=== PATIENT | female | born 1970 | race Caucasian/White ===

== ENCOUNTER 2020-10-20 11:24 | Outpatient (REF) | payer SELFPAY ==
[2020-10-20 14:24] LABS: Cholesterol 249 mg/dL
== END 2020-10-20 11:25 | disposition home or self-care (01) ==
LOC: HO.LNC 11:24
PROVIDERS: Visit Provider Pathology Anatomic Pathology & Clinical Pathology
DX: Z13.89 Encounter for screening for other disorder (principal)
CPT/HCPCS: 36415; 82465

== ENCOUNTER 2021-01-31 07:46 | Outpatient (REF) | payer OTHER, SELFPAY ==
[2021-01-31 08:37] LABS: Alanine Aminotransferase 14 U/L (0-31); Cholesterol 247 mg/dL; Glucose Fasting 93 mg/dL (60-99); HDL Cholesterol 104 mg/dL; LDL Cholesterol Calculated 133 mg/dl; Triglycerides 52 mg/dL
== END 2021-01-31 07:47 | disposition home or self-care (01) ==
LOC: HO.LAB 07:46
PROVIDERS: PCP Family Medicine; Visit Provider Family Medicine
DX: E78.00 Pure hypercholesterolemia, unspecified (principal); Z79.899 Other long term (current) drug therapy; Z83.3 Family history of diabetes mellitus
CPT/HCPCS: 36415; 80061; 82550; 82947; 84460

== ENCOUNTER 2021-03-29 10:28 | Emergency (ER) | payer OTHER, SELFPAY ==
--- NOTE | ~2021-03-29 | CT_ITS ---
EXAMINATION: CT HEAD WITHOUT CONTRAST CLINICAL INFORMATION: Left-sided facial numbness. COMPARISON: None TECHNIQUE: Contiguous axial imaging was performed from the skull base to vertex without intravenous administration of contrast. This CT examination was performed using dose optimization techniques as appropriate, variously including the following: *Automated exposure control *Adjustment of mA and/or kV according to patient size (this includes techniques or standardized protocols for targeted exams where dose is matched to indication/reason for exam; i.e. extremities or head) *Use of iterative reconstruction technique DLP: 746 mGy-cm FINDINGS: There is no evidence of acute intracranial hemorrhage or territorial infarction. No abnormal mass effect or midline shift is seen. Celeste to white matter differentiation is well preserved. No extra-axial fluid collections are identified. The ventricles are normal in size. There is no abnormal attenuation within the brain parenchyma. The osseous structures and soft tissues are normal. The mastoid air cells and visualized portions of the paranasal sinuses are well aerated. CT/CT head/brain wo con IMPRESSION: No acute intracranial process seen.
--- NOTE | ~2021-03-29 | US_ITS ---
EXAMINATION: US VENOUS ULTRASOUND WITH DOPPLER LOWER EXTREMITY, LEFT CLINICAL INFORMATION: Leg swelling. COMPARISON: None TECHNIQUE: Ultrasound of the deep veins is performed from the hip to the calf with compression sonography and color and pulse Doppler assessment. Spectral analysis with color-flow imaging is performed. FINDINGS: There is normal venous compression and respiratory variation and augmented flow. The visualized common femoral vein, superficial femoral vein, profunda femoral vein, popliteal vein, and the trifurcation region shows no evidence of deep venous thrombosis. There is no significant popliteal fossa cyst. If the patient's symptoms persist, followup ultrasound in 5 days 7 days might be of value to exclude proximal propagation from a non-visualized calf vein. US/US venous duplex LE LT IMPRESSION: No DVT demonstrated in the left lower extremity.
[2021-03-29 10:37] VITALS: BP 120/60; PULSE 74; RESP 18; TEMP 36.2; O2SAT 99; BMI 32.3
--- NOTE | 2021-03-29 11:01 | ECG_ITS ---
Test Reason : LEFT ARM NUMBNESS Blood Pressure : / mmHG Vent. Rate : 069 BPM Atrial Rate : 069 BPM P-R Int : 142 ms QRS Dur : 104 ms QT Int : 404 ms P-R-T Axes : 049 060 062 degrees QTc Int : 432 ms Normal sinus rhythm with sinus arrhythmia Normal ECG No previous ECGs available Referred By: Monik Jovel Electronically Signed By:Reggie Rebollar
--- NOTE | 2021-03-29 11:07 | ED.GENADULT ---
HPI - General Adult General Chief complaint: Extremity Problem Stated complaint: Possible blood clot Time Seen by Provider: 03/29/21 10:48 Source: patient Mode of arrival: ambulatory Limitations: no limitations History of Present Illness HPI narrative: 50yo female previously healthy here with complaints of left knee pain/swelling > months. Seen by [facility] and had x-ray which showed no acute finding. Diagnosed with chondromalacia and sent to 6 weeks of physical therapy. Increasing pain this week with no new injury or trauma. Spoke to orthopedics and is pending an MRI of knee. Now having pain and swelling extending to the left calf with mild warmth. No fevers, chills or redness. No recent travel or sick contact. No OCP or estrogen use. No h/o blood clots or familial history. Has been sedentary last few months d/t pain in the left knee. Also c/o left sided facial numbness > 4 months with intermittent numbness in left arm as well. No weakness, speech changes, ROSADO, dizziness, vision changes, neck pain, chest pain, weakness. Has upcoming appt with PCP [place] April[place] l[place]. Cannot recall any tick bites but is outside frequently. Related Data Allergies Allergy/AdvReac Type Severity Reaction Status Date / Time levofloxacin [From LEVAQUIN] AdvReac Intermediate NAUSEA Verified 03/29/21 10:37 Review of Systems Review of Systems: Yes all other systems are reviewed and are negative Constitutional: Constitutional: Reports no additional constitutional complaints, Denies body ache(s), Denies chills, Denies fever(s), Denies headache(s) and Denies weakness Eyes: Eyes: Reports no additional eye complaints and Denies change in vision ENT: Reports system reviewed and no additional complaints, except as documented, Denies dizziness, Denies headache(s), Denies nasal congestion, Denies nasal discharge and Denies neck pain Cardiovascular: Cardiovascular: Reports no additional cardiovascular complaints, Denies chest pain, Reports leg edema and Denies dyspnea Respiratory: Respiratory: Reports no additional respiratory complaints, Denies cough and Denies dyspnea Gastrointestinal: Gastrointestinal: Reports no additional gastrointestinal complaints, Denies abdominal pain, Denies diarrhea, Denies nausea and Denies vomiting Genitourinary: Genitourinary: Reports no additional female genitourinary complaints and Denies urinary incontinence Musculoskeletal: Musculoskeletal: Reports no additional musculoskeletal complaints, Denies back pain, Reports arthralgias, Denies joint swelling, Denies neck pain, Reports numbness and Denies tingling Integumentary/Breasts: Skin/Breast: Reports system reviewed and no additional complaints, except as docu, Reports swelling and Denies rash Neurologic: Reports system reviewed and no additional complaints, except as documented, Denies Abnormal speech present, Denies dizziness, Denies headache(s), Reports numbness, Denies tingling and Denies weakness [facility] Past Medical History Attestation statement: The following information was validated with the patient. Source: old records reviewed and nursing notes reviewed Social History Social History Advance Directives: Yes Advance Directives Information Provided: Yes Advance Directives on File: No Patient : No Physical Exam Vital Signs: Vital Signs: Last Vital Signs Temp 97.1 F 03/29/21 10:37 Pulse 74 03/29/21 10:37 Resp 18 03/29/21 10:37 BP 120/60 03/29/21 10:37 Pulse Ox 99 03/29/21 10:37 Body Mass Index 32.3 Const: General: cooperative, healthy appearing, comfortable and no acute distress Orientation/consciousness: patient oriented x3 Limitations: no limitations HENMT: Head: Yes normal to inspection Ears: hearing grossly normal bilaterally and TM's normal bilaterally General nose exam: Normal external nose present Face and sinus: Yes normal facial exam Mouth: Normal oral and palatal mucosa present, lip normal and tongue normal Throat: Yes posterior oropharynx normal, Yes tonsils normal and Yes uvula midline Eyes: General: appearance normal, both eyes and all related structures Visual Campbell: normal visual campbell by confrontation Alignment and Position: alignment normal Periorbital: periorbital findings normal Eyelids: Yes eyelids normal Conjunctivae: conjunctivae normal Sclerae: sclerae normal Corneas: corneas normal Pupils: Equal, round and reactive pupils present EOM: EOMs intact bilaterally Direct Ophthalmoscopy: normal light reflex and no photophobia Neck: Neck: Yes normal visual inspection, Yes full ROM, Yes no lymphadenopathy and Yes no meningeal signs Chest: Chest palpation & inspection: normal inspection of the chest Resp: Effort & Inspection: normal respiratory effort Auscultation: clear to auscultation bilaterally Cardio: Rate: regular rate Rhythm: regular rhythm Peripheral pulses: Peripheral pulses 2+ throughout GI: Inspection: Yes normal to inspection Palpation (GI): Soft to palpation and nontender Auscultation: normal bowel sounds Back/Spine/Pelvis: Thoracic/Lumbar Spine: thoracic and lumbar spine normal to inspection Skin: General skin exam: no rashes or lesions noted Neuro: Other: Reports sensation intact to left face and left arm but feels dull General: patient oriented x3, no meningeal signs, no focal motor deficits and normal sensation to monofilament Cranial nerves: Yes Equal, round and reactive pupils present, Yes Bilaterally intact EOM present, Yes Nystagmus not present, Yes Normal facial strength present and Yes Midline tongue present Cognition (Neuro): normal cognition Speech: No Abnormal speech present Gait exam (Neuro): Normal gait present Motor exam (neuro): 5/5 motor strength present throughout Sensory Exam: Normal double simultaneous stimulation for sensation Deep tendon reflexes (DTR's): Right patellar reflex intensity grade: 3+ and Left patellar reflex intensity grade: 3+ Coordination: [id number]-kg-[id number] test normal and ocmk-xt-ldew test normal Extrem: Other: Tendernes to both anterior and posterior left knee. Mild swelling. No warmth or redness. No ligamental laxity. Negative anterior drawer test. Mild swelling and tenderness to the left lower extremity and to the posterior calf. Palpable DP and PT pulses. Sensation is intact distally. General: Yes normal to inspection Course Course Course Narrative: 50-year-old female here with multiple complaints. Patient is complaining of acute on chronic left knee pain now with radiation to the left calf with some swelling for the last week. Has pending outpatient MRI of the knee and is followed by [facility]. On exam she does have some tenderness and swelling to the left knee with some mild posterior calf tenderness and swelling. Will check ultrasound. No new fall or injury so will defer x-ray. Also complaining of left facial numbness and left arm numbness for greater than 4 months. Patient does have dull or sensation reported over the face and arm but otherwise a normal neurological exam. Upcoming appointment with primary care on April to address this. Will check labs, EKG and CT head. 1300- ultrasound negative for DVT. Patient has outpatient MRI which is pending Orthopedics. No need for emergent MRI of the knee at this time. Recommended RICE, NSAIDS. CT, EKG and labs all unremarkable with symptoms greater than 4 months. Lyme panel is pending. can follow-up with primary care doctor outpatient. Has upcoming appointment in April. reviewed worrisome signs and symptoms of when to return to the emergency department. Comfortable discharge home. Medical Decision Making MDM Narrative Medical decision making narrative: Paresthesias, Lyme disease, ICH versus lesion vs CVA-less likely with intermittent symptoms > 4 months with negative imaging, sun cyst, DVT Medical Records Medical records reviewed: Yes I reviewed the patient's medical records. Lab Data Lab results reviewed: Yes I reviewed the patient's lab results. Result diagrams: 03/29/21 11:59 03/29/21 11:58 Labs: Lab Results 03/29/21 03/29/21 03/29/21 Range/Units 11:58 11:58 11:59 WBC 7.5 (4.8-10.8) X10*3/uL RBC 4.39 (4.20-5.50) X10*6/uL Hgb 13.1 (12.0-16.0) g/dl Hct 40.0 (37-47) % MCV 91.1 (80-98) fL MCH 29.8 (27.0-33.0) pg MCHC 32.8 (31.0-35.0) g/dl RDW 13.1 (11.0-16.0) % Plt Count 223 (160-400) X10*3/uL MPV 10.2 (9.4-12.3) fL Immature Gran % (Auto) 0.3 (0.0-0.4) % Neut % (Auto) 65.8 (45-73) % Lymph % (Auto) 25.4 (20-40) % [place] % (Auto) 7.4 (2-11) % Eos % (Auto) 0.7 (0-4) % Baso % (Auto) 0.4 (0-2) % Lymph # (Auto) 1.9 (1.2-4.9) X10*3/uL [place] # (Auto) 0.6 (0.1-1.2) X10*3/uL Eos # (Auto) 0.1 (0.0-0.4) X10*3/uL Baso # (Auto) 0.0 (0.0-0.2) X10*3/uL Abs Immat Gran (auto) 0.02 (0.00-0.03) X10*3/uL Absolute Neuts (auto) 5.0 (2.0-8.3) X10*3/uL Absolute Nucleated RBC 0.000 (0.0-0.012) X10*3/uL Nucleated RBC % (auto) 0.0 (0.0-0.2) /100WBC Sodium 142 (135-145) mmol/L Potassium 4.1 (3.3-5.1) mmol/L Chloride 104 (96-108) mmol/L Carbon Dioxide 28 (22-29) mmol/L Anion Gap 14 (12-20) BUN 13 (9-16) mg/dL Creatinine 0.85 (0.5-1.4) mg/dL Estim Creat Clear Calc 89.8 Estimated GFR > 60 Random Glucose 85 (60-115) mg/dL Calcium 9.8 (8.4-10.2) mg/dL Magnesium 2.0 Cancelled (1.6-2.6) mg/dL Total Bilirubin 1.2 H (0.0-1.0) mg/dL Direct Bilirubin 0.4 (0.0-0.5) mg/dL AST 33 H (5-31) U/L ALT 60 H (0-31) U/L Alkaline Phosphatase 78 (39-117) U/L Troponin I High Sens (<3.5-17.0) ng/L Total Protein 7.2 (6.5-8.0) g/dL Albumin 4.4 (3.5-5.0) g/dL 03/29/21 Range/Units 12:03 WBC (4.8-10.8) X10*3/uL RBC (4.20-5.50) X10*6/uL Hgb (12.0-16.0) g/dl Hct (37-47) % MCV (80-98) fL MCH (27.0-33.0) pg MCHC (31.0-35.0) g/dl RDW (11.0-16.0) % Plt Count (160-400) X10*3/uL MPV (9.4-12.3) fL Immature Gran % (Auto) (0.0-0.4) % Neut % (Auto) (45-73) % Lymph % (Auto) (20-40) % [place] % (Auto) (2-11) % Eos % (Auto) (0-4) % Baso % (Auto) (0-2) % Lymph # (Auto) (1.2-4.9) X10*3/uL [place] # (Auto) (0.1-1.2) X10*3/uL Eos # (Auto) (0.0-0.4) X10*3/uL Baso # (Auto) (0.0-0.2) X10*3/uL Abs Immat Gran (auto) (0.00-0.03) X10*3/uL Absolute Neuts (auto) (2.0-8.3) X10*3/uL Absolute Nucleated RBC (0.0-0.012) X10*3/uL Nucleated RBC % (auto) (0.0-0.2) /100WBC Sodium (135-145) mmol/L Potassium (3.3-5.1) mmol/L Chloride (96-108) mmol/L Carbon Dioxide (22-29) mmol/L Anion Gap (12-20) BUN (9-16) mg/dL Creatinine (0.5-1.4) mg/dL Estim Creat Clear Calc Estimated GFR Random Glucose (60-115) mg/dL Calcium (8.4-10.2) mg/dL Magnesium (1.6-2.6) mg/dL Total Bilirubin (0.0-1.0) mg/dL Direct Bilirubin (0.0-0.5) mg/dL AST (5-31) U/L ALT (0-31) U/L Alkaline Phosphatase (39-117) U/L Troponin I High Sens < 3.5 (<3.5-17.0) ng/L Total Protein (6.5-8.0) g/dL Albumin (3.5-5.0) g/dL Imaging Data Venous US: Attestation: I personally reviewed and interpreted this imaging study as follows: Radiologist's impression: FINDINGS: There is normal venous compression and respiratory variation and augmented flow. The visualized common femoral vein, superficial femoral vein, profunda femoral vein, popliteal vein, and the trifurcation region shows no evidence of deep venous thrombosis. There is no significant popliteal fossa cyst. If the patient's symptoms persist, followup ultrasound in 5 days 7 days might be of value to exclude proximal propagation from a non-visualized calf vein. US/US venous duplex LE LT IMPRESSION: No DVT demonstrated in the left lower extremity. CT scan - head: Attestation: I personally reviewed and interpreted this imaging study as follows: Radiologist's impression: FINDINGS: There is no evidence of acute intracranial hemorrhage or territorial infarction. No abnormal mass effect or midline shift is seen. Celeste to white matter differentiation is well preserved. No extra-axial fluid collections are identified. The ventricles are normal in size. There is no abnormal attenuation within the brain parenchyma. The osseous structures and soft tissues are normal. The mastoid air cells and visualized portions of the paranasal sinuses are well aerated. CT/CT head/brain wo con IMPRESSION: No acute intracranial process seen. ECG Data Attestation: I personally reviewed and interpreted this ECG as follows: Interpretation: 1137 NSR with SA, normal pr, normal qrs, normal qtc Discharge Plan Discharge Clinical Impression: Acute pain of left knee, Facial paresthesia Patient Disposition: Home, Self-Care Instructions: Paresthesia (ED), Knee Pain (ED) Additional Instructions: Follow-up with [facility] for MRI as discussed Ice to the area, elevation and steven bandage for comfort Your CT scan, lab work all looked normal. You should follow-up with your doctor for your symptoms of numbness Referrals: Merritt Johnson MD [Primary Care Provider] - 2 days Interventions: ED Discharge Assessment Last Done: 03/29/21 13:26 Discharge Date/Time: 03/29/21 13:31
[2021-03-29 12:09] LABS: Basophils Percent Auto 0.4 % (0-2); Eosinophils Absolute Auto 0.1 X10*3/uL (0.0-0.4); Eosinophils Percent Auto 0.7 % (0-4); Hemoglobin 13.1 g/dl (12.0-16.0); Imm Gran Abs Auto 0.02 X10*3/uL (0.00-0.03); Imm Gran Pct Auto 0.3 % (0.0-0.4); Lymphocytes Absolute Auto 1.9 X10*3/uL (1.2-4.9); Lymphocytes Percent Auto 25.4 % (20-40); MANUAL DIFF FLAG NO; Mean Corpuscular HGB Conc 32.8 g/dl (31.0-35.0); Mean Corpuscular Hemoglobin 29.8 pg (27.0-33.0); Mean Corpuscular Volume 91.1 fL (80-98); Mean Platelet Volume 10.2 fL (9.4-12.3); Monocytes Absolute Auto 0.6 X10*3/uL (0.1-1.2); Monocytes Percent Auto 7.4 % (2-11); Neutrophils Percent Auto 65.8 % (45-73); Platelet Count 223 X10*3/uL (160-400); Red Blood Count 4.39 X10*6/uL (4.20-5.50); Red Cell Distribution Width 13.1 % (11.0-16.0); White Blood Count 7.5 X10*3/uL (4.8-10.8)
[2021-03-29 12:41] LABS: Troponin-I High Sensitivity < 3.5 ng/L (<3.5-17.0)
[2021-03-29 12:42] LABS: Alanine Aminotransferase 60 U/L (0-31); Albumin Level 4.4 g/dL (3.5-5.0); Alkaline Phosphatase 78 U/L (39-117); Anion Gap 14 (12-20); Aspartate Amino Transferase 33 U/L (5-31); Bilirubin Direct 0.4 mg/dL (0.0-0.5); Bilirubin Total 1.2 mg/dL (0.0-1.0); Blood Urea Nitrogen 13 mg/dL (9-16); Calcium 9.8 mg/dL (8.4-10.2); Carbon Dioxide 28 mmol/L (22-29); Chloride 104 mmol/L (96-108); Creatinine Clr Calc Pharmacy 89.8; Estimated Glomerular Filt Rate > 60; Glucose Random 85 mg/dL (60-115); Potassium 4.1 mmol/L (3.3-5.1); Sodium 142 mmol/L (135-145); Total Protein 7.2 g/dL (6.5-8.0)
[2021-03-30 17:06] LABS: Lyme Abs Screen <0.90 index
== END 2021-03-29 13:31 | disposition home or self-care (01) ==
PROVIDERS: Nurse Practitioner Family; Emergency Provider Emergency Medicine; PCP Family Medicine
DX: M25.562 Pain in left knee (principal); R60.0 Localized edema; R20.2 Paresthesia of skin; Z79.899 Other long term (current) drug therapy
CPT/HCPCS: 36415; 70450; 80048; 80076; 83735; 84484; 85025; 86617; 86618; 93005; 93971; 99284

== ENCOUNTER 2021-04-08 12:33 | Outpatient (REF) | payer OTHER, SELFPAY ==
--- NOTE | ~2021-04-08 | MM_ITS ---
EXAMINATION: MM SCREENING DIGITAL BREAST TOMOSYNTHESIS, BILATERAL CLINICAL INFORMATION: Screening. Asymptomatic. Family history breast cancer, sister. The lifetime risk of breast cancer based on the Tyrer-Cuzick Model is 22%. COMPARISON: Mammography: 03/03/2020, 02/22/2019, 01/16/2018 TECHNIQUE: Digital breast tomosynthesis is performed in both the craniocaudal and mediolateral oblique views along with computer-aided detection (CAD). Synthesized 2D images are generated from the tomosynthesis. FINDINGS: There are scattered areas of fibroglandular density (ACR BI-RADS breast composition Category b). There are no significant masses, abnormal calcifications, or other abnormalities. The axilla and skin contours are unremarkable. MM/MM tomosynthesis screening BI IMPRESSION: No mammographic evidence of malignancy. ASSESSMENT: BI-RADS 1: Negative RECOMMENDATION: 1. Routine annual mammography screening. 2. The lifetime risk of breast cancer based on the Tyrer-Cuzick Model is 22%. Additional annual adjunct screening with breast MRI may be of benefit in women with a risk score of 20% or greater. This patient's information was entered into a reminder system with a target due date for their next mammogram.
== END 2021-04-08 12:34 | disposition home or self-care (01) ==
LOC: HO.MAMMO 12:33
PROVIDERS: Visit Provider Family Medicine
DX: Z12.31 Encounter for screening mammogram for malignant neoplasm of breast (principal)
CPT/HCPCS: 77063; 77067

== ENCOUNTER 2021-07-02 09:16 | Emergency (ER) | payer OTHER, SELFPAY ==
--- NOTE | ~2021-07-02 | XR_ITS ---
EXAMINATION: XR CHEST CLINICAL INFORMATION: Cough, shortness of breath. COMPARISON: None TECHNIQUE: 2 views of the chest were obtained. FINDINGS: The lungs are well-expanded and clear. The heart size and pulmonary vascularity is normal. No gross bony abnormality seen. XR/XR chest 2V IMPRESSION: Unremarkable chest exam.
[2021-07-02 10:26] VITALS: BP 144/62; PULSE 84; RESP 18; TEMP 36.7; O2SAT 98; BMI 32.3
--- NOTE | 2021-07-02 10:42 | ED.GENADULT ---
HPI - General Adult General Chief complaint: Upper Respiratory Symptoms Stated complaint: Cough Time Seen by Provider: 07/02/21 10:41 Source: patient Limitations: no limitations History of Present Illness HPI narrative: Patient presents to the ER with worsening cough and congestion since Tuesday. Patient works as a dental hygienist. Patient is not vaccinated for COVID-19. Patient had a rapid COVID-19 test and PCR test done on Tuesday that was negative she has test results with her. Patient denies tobacco history. Cough is nonproductive at this time. Patient does have a history of seasonal allergies and also history of hypercholesterolemia. At this time patient denies nausea vomiting fever chills. Patient states difficulty sleeping at night secondary to cough symptoms are moderate. Related Data Previous Rx's Medication Instructions Recorded albuterol sulfate 90 mcg/actuation 2 puff INHALATION Q6H PRN #6.7 g 07/02/21 aerosol inhaler (ProAir HFA) hydrocodone-homatropine 5 mg-1.5 5 ml PO Q6H PRN #100 ml 07/02/21 mg/5 mL oral syrup (Hycodan (with homatropine)) prednisone 20 mg tablet 40 mg PO DAILY 5 Days #10 tab 07/02/21 Allergies Allergy/AdvReac Type Severity Reaction Status Date / Time levofloxacin [From LEVAQUIN] AdvReac Intermediate NAUSEA Verified 03/29/21 10:37 Review of Systems Constitutional: Constitutional: Denies body ache(s), Denies chills, Denies fever(s) and Denies headache(s) ENT: Denies headache(s), Reports nasal congestion, Denies nasal discharge, Denies nose pain and Reports sore throat Cardiovascular: Cardiovascular: Denies chest pain and Reports dyspnea Respiratory: Respiratory: Reports cough and Reports dyspnea Gastrointestinal: Gastrointestinal: Denies nausea and Denies vomiting Musculoskeletal: Musculoskeletal: Denies back pain and Denies muscle cramps Neurologic: Denies headache(s) [facility] Past Medical History Attestation statement: The following information was validated with the patient. Medical History No known health problems Social History Social History Advance Directives: No Advance Directives Information Provided: No Patient : No Physical Exam Vital Signs: Vital Signs: Last Vital Signs Temp 98.0 F 07/02/21 10:26 Pulse 84 07/02/21 10:26 Resp 18 07/02/21 10:26 BP 144/62 H 07/02/21 10:26 Pulse Ox 98 07/02/21 10:26 Body Mass Index 32.3 vital signs have been reviewed as normal and appeared to be correct. Blood pressure normal. Heart rate normal. Respiration rate normal. Temperature normal. Oxygen saturation normal. No Dowling signs noted. No raccoon eyes noted Eyes: PERRLA. EOMI. Conjunctiva and sclera normal. Eyelids normal. ENT: Pharynx normal. Uvula midline. Moist mucous membranes. No trismus noted. No drooling noted. Neck: Soft full range of motion, no JVD CVS: Heart regular rate and rhythm no murmurs and rubs Respiratory: Breath sounds coarse bilaterally Abdomen: Soft nontender no rebound or guarding positive bowel sounds Skin: Skin warm and dry. Normal skin color. Normal skin turgor. No rashes/lesions/lacerations noted. Extremities: No lower extremity edema. Extremities exhibit normal range of motion. Extremities nontender. Neuro: Oriented X 3. No motor deficit. No sensory deficit. Reflexes normal. Course Course Course Narrative: Acute bronchitis Pneumonia Viral syndrome URI Sinusitis Chest x-ray pending Chest x-ray negative symptoms consistent with acute bronchitis [place] reviewed Medical Decision Making Imaging Data Chest x-ray: Radiologist's impression: [address] [address] XRay Report Signed Patient: Savita Haynes MR#: [id number] : 1970 Acct:[id number] Age/Sex: 51 / F ADM Date: 07/02/21 Loc: .ED Attending Dr: Ordering Physician: Tom Ng Date of Service: 07/02/21 Procedure(s): XR chest 2V Accession Number(s): [id number] cc: Tom Ng ~ EXAMINATION: XR CHEST CLINICAL INFORMATION: Cough, shortness of breath. COMPARISON: None TECHNIQUE: 2 views of the chest were obtained. FINDINGS: The lungs are well-expanded and clear. The heart size and pulmonary vascularity is normal. No gross bony abnormality seen. XR/XR chest 2V IMPRESSION: Unremarkable chest exam. 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
== END 2021-07-02 11:58 | disposition home or self-care (01) ==
PROVIDERS: Emergency Provider Emergency Medicine Emergency Medical Services; PCP Family Medicine
DX: J40 Bronchitis, not specified as acute or chronic (principal); R05.9 Cough, unspecified; Z20.822 Contact with and (suspected) exposure to COVID-19; Z79.899 Other long term (current) drug therapy
CPT/HCPCS: 71046; 99283

== ENCOUNTER 2022-04-19 11:49 | Outpatient (REF) | payer OTHER, SELFPAY ==
--- NOTE | ~2022-04-19 | MM_ITS ---
EXAMINATION: MM SCREENING DIGITAL BREAST TOMOSYNTHESIS, BILATERAL CLINICAL INFORMATION: Screening. Asymptomatic. Family history breast cancer, sister. The lifetime risk of breast cancer based on the Tyrer-Cuzick Model is 24%. COMPARISON: Mammography: 04/08/2021, 03/03/2020, 02/22/2019 TECHNIQUE: Digital breast tomosynthesis is performed in both the craniocaudal and mediolateral oblique views along with computer-aided detection (CAD). Synthesized 2D images are generated from the tomosynthesis. FINDINGS: There are scattered areas of fibroglandular density (ACR BI-RADS breast composition Category b). There are no significant masses, abnormal calcifications, or other abnormalities. Parenchymal pattern is similar to prior studies. The axilla and skin contours are unremarkable. MM/MM tomosynthesis screening BI IMPRESSION: No mammographic evidence of malignancy. ASSESSMENT: BI-RADS 1: Negative RECOMMENDATION: Routine annual mammography screening. This patient's information was entered into a reminder system with a target due date for their next mammogram.
== END 2022-04-19 11:50 | disposition home or self-care (01) ==
LOC: HO.MAMMO 11:49
PROVIDERS: PCP Internal Medicine; Visit Provider Obstetrics & Gynecology Gynecology
DX: Z12.31 Encounter for screening mammogram for malignant neoplasm of breast (principal)
CPT/HCPCS: 77063; 77067

== ENCOUNTER 2023-03-07 07:22 | Day surgery (SDC) | payer OTHER, SELFPAY ==
--- NOTE | 2023-03-04 11:37 | P.CONAN_ITS ---
Documented by User: Amparo Mahan NP 03/04/23 11:39 HPI - Anesthesia Eval Consult details Narrative: 52yo F for Colonoscopy [facility] Past Medical History Medical History (Updated 03/04/23 @ 11:39 by Amparo Mahan NP) HLD (hyperlipidemia) Surgical History Surgical History (Updated 03/04/23 @ 11:38 by Amparo Mahan NP) H/O colonoscopy Social History Social History Advance Directives: No Advance Directives Information Provided: Yes Meds Allergies Allergy/AdvReac Type Severity Reaction Status Date / Time levofloxacin [From LEVAQUIN] AdvReac Intermediate NAUSEA Verified 03/29/21 10:37 Home Medications Medication Instructions Recorded Confirmed Last Taken Type simvastatin 10 mg tablet 10 mg PO BEDTIME 03/04/23 03/04/23 Unknown History Exam Exam Date and Time: March 04, 2023 113 Assessment and Plan Assessment Anesthesia Assessment: Chart Reviewed Documented by User: Tom Adkins MD 03/07/23 07:39 [facility] Past Medical History Medical History (Updated 03/04/23 @ 11:39 by Amparo Mahan NP) HLD (hyperlipidemia) Family History Family history of problems with anesthesia: No Surgical History Surgical History (Updated 03/04/23 @ 11:38 by Amparo Mahan NP) H/O colonoscopy History of Problems with Anesthesia: No Social History Social History Advance Directives: No Advance Directives Information Provided: Yes Meds Allergies Allergy/AdvReac Type Severity Reaction Status Date / Time levofloxacin [From LEVAQUIN] AdvReac Intermediate NAUSEA Verified 03/29/21 10:37 Home Medications Medication Instructions Recorded Confirmed Last Taken Type simvastatin 10 mg tablet 10 mg PO BEDTIME 03/04/23 03/04/23 Unknown History Exam Airway Mallampati Class: II TM Dist: >3cm Neck ROM: Limited Heart: rrr Lungs: cta Assessment and Plan Assessment Anesthesia Assessment: Anesthesia Plan Discussed Final Anesthetic Review Family History of Problems with Anesthesia: No History of Problems with Anesthesia: No NPO: Yes ASA Class: II Final Preanesthetic Review: No Changes in Pt Med Stat, Meds/Allgs Chart Rev iewed, Consent Obtained/Reviewed and Anes Risks/Benef Reviewed Patient Risk: Intermediate Procedure Risk: Low Anesthetic Plan Anesthetic Plan: MAC: and Agree w/ Assess. and Plan Disposition: Standard PACU
[2023-03-07 07:52] VITALS: BMI 39.4
[2023-03-07 07:59] VITALS: BP 113/94; PULSE 87; RESP 15; TEMP 36.4; O2SAT 98
[2023-03-07] MEDS: Lactated Ringers 1,000 ML 100 ML IVCONT (08:13)
[2023-03-07 09:33] VITALS: BP 96/50; PULSE 72; RESP 16; TEMP 36.1; O2SAT 97
--- NOTE | 2023-03-07 09:34 | P.BOP_ITS ---
Brief Operative Note Date of Service: 03/07/23 Pre-op diagnosis: Screening Post-op diagnosis: other (Diverticulosis) Procedure: Colonoscopy to the cecum and TI Surgeon: Alex Muniz Anesthesia: MAC Was an General Road Supervisor used for this Procedure?: No Estimated blood loss (mL): 0 Pathology: none sent Condition: stable Disposition: PACU
[2023-03-07 09:48] VITALS: BP 98/50; PULSE 78; RESP 16; O2SAT 97
[2023-03-07 10:00] VITALS: BP 108/54; PULSE 61; RESP 16; TEMP 36.2; O2SAT 96
--- NOTE | 2023-03-07 10:00 | OP_ITS ---
DATE OF SERVICE: 03/07/2023 SURGEON: Alex Muniz MD INDICATIONS: The patient presents for evaluation of colorectal cancer screening. Full consent was obtained from her for this, including risks of bleeding and perforation. PREOPERATIVE DIAGNOSIS: Colorectal cancer screening. POSTOPERATIVE DIAGNOSIS: PROCEDURE PERFORMED: Colonoscopy to the cecum and terminal ileum. ESTIMATED BLOOD LOSS: COMPLICATIONS: ANESTHESIA: Monitored anesthesia care. ASSISTANTS: SPECIMENS: POSTOPERATIVE DIAGNOSES: 1. Colorectal cancer screening. 2. Mild sigmoid diverticulosis. 3. Small internal hemorrhoids. DESCRIPTION OF PROCEDURE: The patient was placed in the left lateral decubitus position. The digital rectal exam revealed no abnormalities. The Olympus video pediatric colonoscope was entered into the rectum and advanced easily to the cecum. Once in the cecum I did identify normal-appearing cecal pouch with appendiceal orifice and a normal-appearing ileocecal valve. The terminal ileum was cannulated and appeared normal. The scope was withdrawn back in the colon. The entire cecum and ileocecal valve appeared normal. Scope was slowly withdrawn assessing all mucosal surfaces carefully. Preparation was excellent. I did not visualize any sign of polyps, colitis, or angiodysplasia. There was a mild amount of sigmoid diverticulosis. In the rectum, scope was retroflexed visualizing small internal hemorrhoids, but no other pathology. The rectal mucosa appeared normal. Scope was straightened and withdrawn from the patient. She tolerated the procedure well and was returned to recovery area in stable condition. IMPRESSION: 1. Mild sigmoid diverticulosis. 2. Small internal hemorrhoids. PLAN: Given the negative exam and negative family history I would recommend a followup colonoscopy in 10 years for further screening. She will otherwise see me on a p.r.n. basis. MD CLARE Vasquez/MARILOU / [phone]
== END 2023-03-07 10:32 | disposition home or self-care (01) ==
PROVIDERS: PCP Internal Medicine; Visit Provider Internal Medicine
PROC: 0DJD8ZZ Inspection of Lower Intestinal Tract, Via Natural or Artificial Opening Endoscopic (ICD-10-PCS; CPT 45378; principal; 2023-03-07 08:30)
DX: Z12.11 Encounter for screening for malignant neoplasm of colon (principal); K57.30 Diverticulosis of large intestine without perforation or abscess without bleeding; K64.8 Other hemorrhoids; E78.5 Hyperlipidemia, unspecified; Z79.899 Other long term (current) drug therapy; Z85.820 Personal history of malignant melanoma of skin; Z87.891 Personal history of nicotine dependence
CPT/HCPCS: 45378

== ENCOUNTER 2023-05-20 12:44 | Outpatient (REF) | payer OTHER, SELFPAY ==
--- NOTE | ~2023-05-20 | MM_ITS ---
EXAMINATION: MM SCREENING DIGITAL BREAST TOMOSYNTHESIS, BILATERAL CLINICAL INFORMATION: Screening. Asymptomatic. COMPARISON: Mammography: This study is compared with prior exams dating back to 2017. TECHNIQUE: Digital breast tomosynthesis is performed in both the craniocaudal and mediolateral oblique views along with computer-aided detection (CAD). Synthesized 2D images are generated from the tomosynthesis. FINDINGS: The breasts are almost entirely fatty (ACR BI-RADS breast composition Category a). There are no significant masses, abnormal calcifications, or other abnormalities. MM/MM tomosynthesis screening BI IMPRESSION: No mammographic evidence of malignancy. ASSESSMENT: BI-RADS BI-RADS 1 - Negative RECOMMENDATION: Routine annual mammography screening. 1 year F/U This examination should not preclude the clinical evaluation of a suspicious palpable abnormality. This patient's information was entered into a reminder system with a target due date for their next mammogram.
== END 2023-05-20 12:45 | disposition home or self-care (01) ==
LOC: HO.MAMMO 12:44
PROVIDERS: PCP Internal Medicine; Visit Provider Internal Medicine
DX: Z12.31 Encounter for screening mammogram for malignant neoplasm of breast (principal)
CPT/HCPCS: 77063; 77067

== ENCOUNTER → 2023-05-20 13:00 | Outpatient (BNV) | payer OTHER, SELFPAY | PROVIDERS: PCP Internal Medicine; Visit Provider Radiology Diagnostic Radiology | DX: Z12.31 Encounter for screening mammogram for malignant neoplasm of breast (principal) | CPT/HCPCS: 77063; 77067 ==

== ENCOUNTER 2024-06-11 14:28 | Outpatient (REF) | payer OTHER, SELFPAY ==
--- NOTE | ~2024-06-11 | MM_ITS ---
EXAMINATION: MM SCREENING DIGITAL BREAST TOMOSYNTHESIS, BILATERAL CLINICAL INFORMATION: Screening. Asymptomatic. COMPARISON: Mammography: Comparison is made with available priors TECHNIQUE: Digital breast mammography with tomosynthesis is performed in both the craniocaudal and mediolateral oblique views along with computer-aided detection (CAD). FINDINGS: There are scattered areas of fibroglandular density (ACR BI-RADS breast composition Category b). There are no significant masses, abnormal calcifications, or other abnormalities. MM/MM tomosynthesis screening BI IMPRESSION: No mammographic evidence of malignancy. ASSESSMENT: BI-RADS BI-RADS 1 - Negative RECOMMENDATION: Routine annual mammography screening. 1 year F/U This examination should not preclude the clinical evaluation of a suspicious palpable abnormality. This patient's information was entered into a reminder system with a target due date for their next mammogram. Electronically signed by: Rhiannon Tian DO 06/21/2024 06:36 PM EDT
== END 2024-06-11 14:29 | disposition home or self-care (01) ==
LOC: HO.MAMMO 14:28
PROVIDERS: PCP Internal Medicine; Visit Provider Internal Medicine
DX: Z12.31 Encounter for screening mammogram for malignant neoplasm of breast (principal)
CPT/HCPCS: 77063; 77067

== ENCOUNTER → 2024-06-11 14:45 | Outpatient (BNV) | payer OTHER, SELFPAY | PROVIDERS: PCP Internal Medicine; Visit Provider Internal Medicine | DX: Z12.31 Encounter for screening mammogram for malignant neoplasm of breast (principal) | CPT/HCPCS: 77063; 77067 ==

== ENCOUNTER 2025-07-08 14:41 | Outpatient (REF) | payer OTHER, SELFPAY ==
--- OUTSIDE RECORDS SUMMARY | 2025-01-04 06:15 | XMS_ITS ---
Author Organization [facility] [address] Address [address] [place] [address] Care Team Providers Care Bottoming Room Supervisor Name Role Phone Raymond Hi Primary Care Provider JOSEY [facility] [phone] Encounters Encounter Location Date Provider Diagnosis [facility] [phone] [address] 01/04/2025 JOSEY COKER Plan Of Treatment No Information Progress Notes * PARISSavita ALBRECHTDOB:1970 ( 55 yo F)Acc No.[id number]:01/04/2025 Patient: Savita CASTANO Provider: Sarah COKER PA-C :1970 A ge:54 Y S ex:Female Date:01/04/2025 Address:[address] [place], [place] [id number] Pcp:Raymond Hi Subjective: * Chief Complaints: * * Medical History: Objective: * Vitals: Assessment: Plan: * Treatment: * Images: Billing Information: * Visit Code: * Procedure Codes: * Electronic signature of WANDA COKER PA-C on 07/08/2025 at 06:09 PM EDT Sign off status: Pending * Provider: Sarah COKER PA-C Date: 0 01/04/2025 Generated for Cadence campbell/Keena/Ania on: 1 06:09 PM EDT
--- OUTSIDE RECORDS SUMMARY | 2025-07-08 18:10 | XMS_ITS | Patient Health Record ---
Author Organization [facility] Address [address] [place] [address] Care Team Providers Care Sprinkler Fitter Helper Name Role Phone Raymond Hi MD Primary Care Provider Alex Grady [phone] Allergies Allergen (clinical drug ingredient) Drug/Non Drug Allergy documented on EMR Reaction Allergy Type Onset Date Status acetaminophen / oxycodone Percocet Unknown Drug Allergy Active Levaquin Unknown Drug Allergy Active Reason For Referral No Information Medications Medication SIG (Take, Route, Fr equency, Duration) Notes Start Date End Date Status Magnesium Active Multivitamins Active Probiotic - as directed Orally Active DioVasc - as directed Orally A ctive Simvastatin 10 MG 1 tablet in the even ing Orally Once a day Active CoQ-10 Active Immunizations Vaccine Route Administration Date Status Comme nts Influenza Unknown 12/17/2022 Refused Problems Problem Type SNOMED Code ICD Code Onset Dates Problem Status W/U Status Risk Notes Problem Diverticular disease of colon (238685520) Diverticulosis of large intestine without perforation or abscess without bleeding (K57.30) Active confirmed Problem Preprocedural examination (205418073734528) Preprocedural examination (Z01.818) Active confirmed Problem Screening for colon cancer (612043933) Screening for colon cancer (Z12.11) Active confirmed Plan Of Treatment Future Test Test Name Order Date COLONOSCOPY 10/18/2012 COLONOSCOPY 12/17/2022 Insurance Providers Payer Name Payer Address Payer Phone Subscriber Number Group Number Insured Name Patient Relationship to Insured Coverage Start Date Coverage End Date [facility] [address] [facility] [phone] [id number] RC PRIDE Self - patient is the insured Medical (General) History Medical History History ICD Code Denies [place],DM,CVA,Lung disease,renal dise ase Hyperlipidemia Colonoscopy 12/2012 with smal l internal hemorrhoids and a hyperplastic polyp removed Surgical History Surgery Date(Month/Year) Tonsils Basal cell cancer on leg-removed by Derm atologist Melanoma 2019 on her back right shoulder -Dr. Ortiz
--- OUTSIDE RECORDS SUMMARY | 2025-07-08 18:10 | XMS_ITS | Patient Health Record ---
Author Organization [facility] [address] Address [address] [place] [address] Care Team Providers Care A Class Lineman Name Role Phone Raymond Hi MD Primary Care Provider Unavailab Sima Rodrigez Unavailable [phone] Allergies Allergen (clinical drug ingredient) Drug/Non Drug Allergy documented on EMR Reaction Allergy Type Onset Date Status Adhesive Unknown Allergy Active Reason For Referral No Information Medications Medication SIG (Take, Route, Frequency, Duration) Notes Start Date End Date Status Biotin Active Magnesium Active Co Q 10 Active Daily Multi - as directed Orally Active zzzCompression Stockings 20-30mm Hg . . .; Duration: . Active Simvastatin 10 MG 1 tablet in the evening Orally Once a day; Duration: 30 day(s) Active Night Splint AFO - L1930 as directed 08/18/2020 Active D3 Vitamin Active Vitamin C Active Feldene 20 MG 1 capsule with food Orally Once a day; Duration: 30 day(s) 08/18/2020 Not-Taking Social History Tobacco Use: Social History Observation Description Date Details (start date - stop date) Former Smoker NA - NA Tobacco Use/Smoking Question Answer Notes Are you a: former smoker Additional Findings: Tobacco Non-User Current no n-smoker Alcohol Screen Question Answer Notes Did you have a drink contain ing alcohol in the past year? Yes How often did you have a dri nk containing alcohol in the past year? Monthly or less (1 point) Points 1 Interpretation Negative Tobacco use other than smoking: Question Answer Notes Are you an other tobacco user? No Problems Problem Type SNOMED Code ICD Code Onset Dates Problem Status W/U Status Risk Notes Problem Acquired hammer toe of left foot (8547478905511559 ) Other hammer toe(s) (acquired), left foot (M20.42) Active confirmed Problem Peripheral venous insufficiency (99394264) Venous insufficiency (I87.2) Active confirmed Problem PlantarFlexion o f metatarsal of left foot (M21.6X2) Active confirmed Plan Of Treatment Pending Test Test Name Order Date , M4313-[id number]/INJECT, JOINT/BURSA 0 01/26/2021,[id number] TENDON SHEATH/LIGAMENT 0 12/23/2020 Insurance Providers Payer Name Payer Address Payer Phone Subscriber Number Group Number Insured Name Patient Relationship to Insured Coverage Start Date Coverage End Date [facility] [address] [place] [address] [id number] Savita Haynes Self - patient is the insured Medical (General) History Medical History History ICD Code Cholesterol Cancer raynauds disease Surgical History Surgery Date(Month/Year) melanoma excision 09/2018 endometrial ablation 09/2018 Hospitalization History Reason Date(Month/Year) [facility] and ankle [place]/2021
--- OUTSIDE RECORDS SUMMARY | 2025-07-08 18:10 | XMS_ITS | Patient Health Record ---
Author Organization [employer] [facility] Address [address] [place] [address] Care Team Providers Care Construction Administrator Name Role Phone PREMCARO Primary Care Provider Mallory Block Unavailable [phone] Allergies Allergen (clinical drug ingredient) Drug/Non Drug Allergy documented on EMR Reaction Allergy Type Onset Date Status Levaquin Nausea Drug Allergy Active acetaminophen / oxycodone Percocet Nausea Drug Allergy Active Results Component Value Reference Range Notes PDF Report Reviewed date:06/03/2025 02:40:01 PM Interpretation: Performing Lab:[facility] [address], [address], [place], Phone - [phone], Director - [facility] Notes/Report: Clinical Information:VAG/CERV [id number] Dates / Results....11/08/2022 NIL NEG HPV No. of containers..01 ThinPrep Vial [id number] IGP No Culture 30 Plus Reviewed date:06/03/2025 02:40:36 PM Interpretation: Performing Lab:[facility], [address], [place], Phone - [phone], Director - [facility] Notes/Report: Clinical Information:VAG/CERV [id number] Dates / Results....11/08/2022 NIL NEG HPV No. of containers..01 ThinPrep Vial DIAGNOSIS: NEGATIVE FOR INTRAEPITHELIAL LESION OR MALIGNANCY. THIS SPECIMEN WAS RESCREENED PART OF OUR ACCOUNTING SYSTEM EXPERT PROGRAM. Specimen adequacy: Satisfactory for evaluation. Endocervical and/or squamous metaplastic cells (endocervical component) are present. Clinician provided ICD10: N9 3.0 Performed by: Elen lui, Vehicle Technician (ASCP) QC reviewed by: Mesfin figueroa, Vehicle Technician (ASCP) . . Note: The Pap smear is a screening test designed to aid in the detection of premalignant and malignant conditions of the uterine cervix. It is not a diagnostic procedure and should not be used as the sole means of detecting cervical cancer. Both false-positive and false-negative reports do occur. . Test Methodology: This liquid based ThinPrep(R) pap test was screened with the use of an image guided system. HPV Aptima Negative Negative This nucleic acid amplification test detects fourteen high-risk HPV types (16,18,31,33,35,39,45,51,52,56,58 ,59,66,68) without differentiation. HPV Genotype Reflex Criteria not met, HPV Genotype not performed. Reason For Referral No Information Medications Medication SIG (Take, Route, Frequency, Duration) Notes Start Date End Date Status Magnesium 300 MG 1 capsule with a tayla l Orally Once a day; Duration: 30 day(s) Active Vitamin D3 50 MCG (1999 UT) 1 capsule Orally Once a day; Duration: 30 day(s) Active Estradiol 10 MCG 1 tablet Vaginal Two times a Week; Duration: 90 days 05/30/2025 Active Multi-Vitamin - 1 tablet Orally Once a day; Duration: 30 day(s) Active Zepbound 2.5 MG/0.5ML as directed Subcutaneous Active Simvastatin 10 MG TAKE 1 TABLET BY SHIRA TH EVERY DAY AT BEDTIME DIRECTED Oral; Duration: 30 Active Social History Tobacco Use: Social History Observation Description Date Details (start date - stop date) Never Smoker NA - NA Sexual History Question Answer Notes Had sex in the past 12 months (vaginal, oral, or anal)? Yes with Men only Prevention strategies discussed: Other AUDIT-C (Standard) Question Answer Notes Did you have a drink containing alcohol in the p ast year? No Points 0 Interpretation Negative Tobacco Control (Standard) Question Answer Notes Tobacco use: Nonsmoker Problems Problem Type SNOMED Code ICD Code Onset Dates Problem Status W/U Status Risk Notes Problem Excessive and frequent menstruation (295239740) Excessive and frequent menstruation with regular cycle (N92.0) Active confirmed Problem Postmenopausal atrophic vaginitis (17235160) Postmenopausal atrophic vaginitis (N95.2) Active confirmed Problem SI - Stress incontinence (73607581) Stress incontinence (female) (male) (N39.3) Active confirmed Problem Morbid obesity (disorder) (528152073) Morbid (severe) obesity due to excess calories (E66.01) Active confirmed Problem Postcoital bleeding (18608036) Postcoital and contact bleeding (N93.0) Active confirmed Problem Unspecified menopausal and perimenopausal disorder (N95.9) Active confirmed Problem Functional urinary incontinence (505964439) Functional urinary incontinence (R39.81) Active confirmed Problem Menopause (965212846) Menopausal and female climacteric states (N95.1) Active confirmed Vital Signs Temperature 97.8 degrees Fahrenheit 05/30/2025 Blood pressure diastolic 74 mm Hg 05/30/2025 Height 65.5 in 05/30/2025 Blood pressure systolic 118 mm Hg 05/30/2025 Weight 230 lbs 05/30/2025 BMI 37.69 kg/m2 05/30/2025 Encounters Encounter Location Date Provider Diagnosis [facility] [address] [facility] [address] [place] [address] 11/12/2024 Mallory Yepez Encounter for gynecological examination (general) (routine) without abnormal findings Z01.419 ; Encounter for screening mammogram for malignant neoplasm of breast Z12.31 ; Menopausal and female climacteric states N95.1 and Morbid (severe) obesity due to excess calories E66.01 [facility] [employer] [facility] [address] [place] [address] 05/30/2025 Mallory Yepez Postcoital and conta ct bleeding N93.0 and Postmenopausal atrophic vaginitis N95.2 Assessments Encounter Date Diagnosis (ICD Code) Assessment Notes Treatment Notes Treatment Clinical Notes Section Notes 11/12/2024 Encounter for gynecological examination (general) (routine) without abnormal findings (ICD-10 - Z01.419) NO PAP TEST, DUE IN 2025. 05/30/2025 Postcoital and contact bleeding (ICD-10 - N93.0) DISCUSSED FINDINGS, NO TEARS OR AREAS OF TRAUMA NOTED. PAP TEST WAS OBTAINED WITH HPV TYPING TO MAKE SURE THIS IS NOT DUE TO CERVICAL PATHOLOGY. SCHEDULE PELVIC ULTRASOUND TO CHECK ENDOMETRIUM. IF ENDOMETRIUM CANNOT BE SEEN WELL, PROCEED WITH HSONO. DISCUSSED HSONO WITH PAT. 05/30/2025 Postmenopausal atrophic vaginitis (ICD-10 - N95.2) DISCUSSED FINDINGS AND HOW VAGINAL ATROPHY CAN CAUSE BLEEDING. RECOMMENDED INTRAVAGINAL ESTROGEN, ITS BENEFITS AND RISKS. PAT AGREED TO TRY. RX AND INSTRUCTIONS WERE GIVEN. USE LUBRICANTS BEFORE SEXUAL ACTIVITY. 11/12/2024 Encounter for screening mammogram for malignant neoplasm of breast (ICD-10 - Z12.31) REGULAR MAMMOGRAMS AND SBE'S WERE RECOMMENDED. 11/12/2024 Menopausal and female climacteric states (ICD-10 - N95.1) DISCUSSED MENOPAUSE AND SYMPTOMS ASSOCIATED WITH THIS. 11/12/2024 Morbid (severe) obesity due to excess calories (ICD-10 - E66.01) DISCUSSED NEGATIVE EFFECTS OF OBESITY ON HER HEALTH. REFERRED TO DR CROWLEY OR DR NAGEL FOR WEIGHT LOSS HELP. Plan Of Treatment Pending Test Test Name Order Date Urinalysis 08/07/2018 Urinalysis 10/19/2021 Urinalysis 11/12/2024 COMPLETE URINALYSIS 11/08/2022 THIN PREP,HPV,JOLEEN IF HPV+ (>29YR)(DIAG) 11/08/2022 THIN PREP,HPV,JOLEEN IF HPV+ (>29YR)(DIAG) 08/07/2018 URINE CULTURE 11/08/2022 MM Digital Mammo Screening 10/13/2020 MM Digital Mammo Screening 10/19/2021 MM Digital Mammo Screening 11/08/2022 MM Digital Mammo Screening 11/11/2023 MM Digital Mammo Screening 11/12/2024 Next Appt Details Provider Name:Mlalory avery, 07/19/2025 08:30:00 AM, [address], [address], [place], [address], Provider Name:Mallory avery, 11/18/2025 09:20:00 AM, [address], [address], [place], [address], Insurance Providers Payer Name Payer Address Payer Phone Subscriber Number Group Number Insured Name Patient Relationship to Insured Coverage Start Date Coverage End Date [facility] [address] [place] [address] [id number] RC PRIDE Self - patient is the insured 4 Medical (General) History Medical History History ICD Code Basal cell Raynaud's Excessive and frequent menstruation with regular cycle N92.0 Stress incontinence (female) (male) N39. 3 Functional urinary incontinence R39.81 Family history of malignant neoplasm of breast Z80.3 Leiomyoma of uterus, unspecified D25.9 Unspecified menopausal and perimenopausa l disorder N95.9 Submucous leiomyoma of uterus D25.0 Surgical History Surgery Date(Month/Year) Tonsillectomy Colonoscopy Ablation w/ Dr. Hayes 09/2018 Hospitalization History Reason Date(Month/Year) See Surgical Hx Kidney Stones 2001
--- OUTSIDE RECORDS SUMMARY | 2025-07-08 18:10 | XMS_ITS | Patient Health Record ---
Author Organization [facility] [address] Address [address] [place] [address] Care Team Providers Care Turntable Engineer Name Role Phone Raymond Hi Primary Care Provider JOSEY [facility] [phone] Reason For Referral No Information Plan Of Treatment No Information Insurance Providers Payer Name Payer Address Payer Phone Subscriber Number Group Number Insured Name Patient Relationship to Insured Coverage Start Date Coverage End Date [facility] [address] [place] [address] [id number] Savita Haynes Self - patient is the insured
== END 2025-07-08 14:42 | disposition home or self-care (01) ==
LOC: HO.MAMMO 14:41
PROVIDERS: Absent Provider Obstetrics & Gynecology Gynecology; PCP Internal Medicine; Visit Provider Internal Medicine
DX: Z12.31 Encounter for screening mammogram for malignant neoplasm of breast (principal)
CPT/HCPCS: 77063; 77067

== ENCOUNTER → 2025-07-08 15:00 | Outpatient (BNV) | payer OTHER, SELFPAY | PROVIDERS: Absent Provider Obstetrics & Gynecology Gynecology; PCP Internal Medicine; Visit Provider Internal Medicine | DX: Z12.31 Encounter for screening mammogram for malignant neoplasm of breast (principal) | CPT/HCPCS: 77063; 77067 ==